=== PATIENT | male | born 1955 | race Caucasian/White ===

== ENCOUNTER 2017-03-28 17:57 | Inpatient (IN) | payer OTHER ==
[~2017-03-28] VITALS: Ht 182.9 cm; Wt 125.1 kg
[~2017-03-28 17:57] MED LIST: DEPAKOTE250 MG PO; DEPAKOTE500 MG PO; DIVALPROEX SOD500 MG PO; GEODON80 MG PO; LO-DOSE ASPIRIN81 M2 PO; NITROSTAT0.4 MG SL
[2017-03-28 18:57] LABS: HEMOGLOBIN 14.8 G/DL (12.5-16.6); MCH 32.2 PG (29.0-34.0); MCHC 35.2 G/DL (30.0-36.0); MCV 91.3 FL (86-99); PLATELET COUNT 183 K/uL (156-360); RBC DIS.WIDTH-CV 13.1 % (11.8-14.6); RBC DIS.WIDTH-SD 43.3 % (39-53); WHITE BLOOD COUNT 21.1 K/uL (4.1-10.2)
[2017-03-28 19:09] LABS: CHLORIDE 104 mEq/L (99-109); POTASSIUM 4.7 mEq/L (3.7-5.4); SODIUM 137 mEq/L (136-147)
[2017-03-28 19:10] LABS: GLUCOSE 128 mg/dL (70-99)
[2017-03-28 19:14] LABS: CREATININE 1.4 mg/dL (0.6-1.3); GFR ESTIMATE (CALCULATED) 55 mL/min/ (58.99-99999)
[2017-03-28 19:15] LABS: UREA NITROGEN (BUN) 16 mg/dL (9-23)
[2017-03-28 19:19] LABS: TROP-I INTERPRETATION NEGATIVE; TROPONIN-I 0.05 ng/mL (0.0-0.30)
[2017-03-28] MEDS ORDERED: ZITHROMAX Z-PA250 MG PO (22:00)
[2017-03-28 22:06] LABS: TROP-I INTERPRETATION NEGATIVE; TROPONIN-I 0.27 ng/mL (0.0-0.30)
[2017-03-28] MEDS ORDERED: OXYBUTYNIN CHLO10 MG PO (22:49)
[2017-03-28] MEDS ORDERED: ZIPRASIDONE HCL80 MG PO (22:51)
[2017-03-28] MEDS ORDERED: DIVALPROEX SOD500 MG PO (22:52)
[2017-03-28] MEDS ORDERED: STOOL SOFTENER1 EAC2 PO (22:56)
[2017-03-29 01:30] LABS: TROP-I INTERPRETATION INDETERMINATE; TROPONIN-I 0.39 ng/mL (0.0-0.30)
[2017-03-29 07:37] LABS: HEMATOCRIT 39.9 % (38.0-50.0); HEMOGLOBIN 13.6 G/DL (12.5-16.6); MCH 31.6 PG (29.0-34.0); MCHC 34.1 G/DL (30.0-36.0); MCV 92.8 FL (86-99); PLATELET COUNT 185 K/uL (156-360); RBC DIS.WIDTH-CV 13.5 % (11.8-14.6); RBC DIS.WIDTH-SD 45.4 % (39-53); WHITE BLOOD COUNT 13.1 K/uL (4.1-10.2)
[2017-03-29 07:43] LABS: INTER. NORMALIZED RATIO 1.2
[2017-03-29 07:46] LABS: PTT 36.2 SEC (25-37)
[2017-03-29 08:09] LABS: TROP-I INTERPRETATION INDETERMINATE; TROPONIN-I 0.32 ng/mL (0.0-0.30)
[2017-03-29 08:15] LABS: ALBUMIN 3.7 G/DL (3.2-4.8); ALKALINE PHOSPHATASE 46 IU/L (3-129); ALT (GPT) 23 IU/L (3-49); AST (GOT) 32 IU/L (2-34); CHLORIDE 105 MEQ/L (99-109); CREATININE 1.3 MG/DL (0.6-1.3); GFR ESTIMATE (CALCULATED) > 59 mL/min/ (58.99-99999); HDL CHOLESTEROL 38 MG/DL (Desirable>=40); LDL CHOLESTEROL 44 mg/dL (Desirable<100); MAGNESIUM 2.4 mg/dl (1.3-2.7); NON-HDL CHOLESTEROL 65 mg/dL (Desirable<160); POTASSIUM 4.4 MEQ/L (3.7-5.4); SODIUM 139 MEQ/L (136-147); TOTAL BILIRUBIN 0.5 MG/DL (0.0-1.0); TOTAL CHOLESTEROL 103 mg/dL (Desirable<200); TOTAL PROTEIN 6.8 G/DL (6.4-8.3); TRIGLYCERIDES 104 MG/DL (Normal: <150); UREA NITROGEN (BUN) 17 mg/dL (9-23)
[2017-03-29 08:20] LABS: GLUCOSE 95 mg/dL (70-99)
[2017-03-29 10:52] LABS: HEMOGLOBIN A1c (GLYCOHEMOGLOB) 5.8 % (Below 5.7)
[2017-03-29 13:05] LABS: TROP-I INTERPRETATION NEGATIVE; TROPONIN-I 0.21 ng/mL (0.0-0.30)
[2017-03-29 15:30] VITALS: BP 115/66
[2017-03-29 19:45] VITALS: BP 104/71
[2017-03-30 00:30] VITALS: BP 110/70
[2017-03-30 03:53] VITALS: BP 120/74
[2017-03-30 05:56] LABS: HEMATOCRIT 37.5 % (38.0-50.0); HEMOGLOBIN 12.9 G/DL (12.5-16.6); MCH 32.1 PG (29.0-34.0); MCHC 34.4 G/DL (30.0-36.0); MCV 93.3 FL (86-99); PLATELET COUNT 171 K/uL (156-360); RBC DIS.WIDTH-CV 13.4 % (11.8-14.6); RBC DIS.WIDTH-SD 45.5 % (39-53); RED BLOOD COUNT 4.02 M/uL (4.00-5.50); WHITE BLOOD COUNT 10.5 K/uL (4.1-10.2)
[2017-03-30 06:43] LABS: CHLORIDE 105 MEQ/L (99-109); CREATININE 1.2 MG/DL (0.6-1.3); GFR ESTIMATE (CALCULATED) > 59 mL/min/ (58.99-99999); GLUCOSE 87 mg/dL (70-99); POTASSIUM 4.4 MEQ/L (3.7-5.4); SODIUM 139 MEQ/L (136-147); UREA NITROGEN (BUN) 22 mg/dL (9-23)
[2017-03-30 08:34] VITALS: BP 115/58
[2017-03-30] MEDS ORDERED: ATORVASTATIN CA80 MG PO (09:38)
[2017-03-30] MEDS ORDERED: CLEOCIN150 MG PO (09:38)
[2017-03-30] MEDS ORDERED: LISINOPRIL2.5 MG PO (09:38)
[2017-03-30] MEDS ORDERED: CLOPIDOGREL75 MG PO (09:38)
[2017-03-30 11:44] VITALS: BP 119/61
== END 2017-03-30 14:59 | disposition home or self-care (01) | DRG 281 ==
LOC: EME 17:57 → 4EAST 03-29 00:38 → EDOF 03-29 00:38 → ENRESERV 03-29 00:43 → EDOF 03-29 09:14 → ENRESERV 03-29 13:35 → 4EAST 03-29 14:54 → ENPENDDIS 03-30 → 4EAST 03-30 14:59
PROVIDERS: Emergency Medicine Emergency Medical Services; Hospitalist; Physician Assistant Medical
DX: I21.4 Non-ST elevation (NSTEMI) myocardial infarction (principal); N17.9 Acute kidney failure, unspecified; L03.115 Cellulitis of right lower limb; I12.9 Hypertensive chronic kidney disease with stage 1 through stage 4 chronic kidney disease, or unspecified chronic kidney disease; E11.22 Type 2 diabetes mellitus with diabetic chronic kidney disease; N18.3 Chronic kidney disease, stage 3 (moderate); E78.5 Hyperlipidemia, unspecified; G40.909 Epilepsy, unspecified, not intractable, without status epilepticus; F20.0 Paranoid schizophrenia; F60.9 Personality disorder, unspecified; R62.50 Unspecified lack of expected normal physiological development in childhood; E66.01 Morbid (severe) obesity due to excess calories; Z68.38 Body mass index [BMI] 38.0-38.9, adult; Z82.49 Family history of ischemic heart disease and other diseases of the circulatory system
CPT/HCPCS: 71046; 73630; 78582; 80048; 80053; 80061; 82948; 83036; 83735; 83880; 84484; 85027; 85610; 85730; 93005; 93971; 99281; 99285; A9540; A9567; J1650

== ENCOUNTER 2017-04-28 10:48 | Day surgery (SDC) | payer OTHER ==
[~2017-04-28] VITALS: Ht 190.5 cm; Wt 123.8 kg
[~2017-04-28 10:48] MED LIST changes: +ATORVASTATIN CA80 MG PO; +CLEOCIN150 MG PO; +CLOPIDOGREL75 MG PO; +LISINOPRIL2.5 MG PO; +OXYBUTYNIN CHLO10 MG PO; +STOOL SOFTENER1 EAC2 PO; +ZIPRASIDONE HCL80 MG PO; +ZITHROMAX Z-PA250 MG PO
== END 2017-04-28 16:51 | disposition home or self-care (01) ==
LOC: CATH 10:48
DX: R07.9 Chest pain, unspecified (principal); E11.9 Type 2 diabetes mellitus without complications; I10 Essential (primary) hypertension; E66.9 Obesity, unspecified; Z68.34 Body mass index [BMI] 34.0-34.9, adult; R20.9 Unspecified disturbances of skin sensation; Z79.82 Long term (current) use of aspirin; Z79.02 Long term (current) use of antithrombotics/antiplatelets
CPT/HCPCS: C1769; C1887; J1644; J2250; J3010; J7040

== ENCOUNTER 2017-05-02 11:58 | Emergency (ER) | payer OTHER ==
[~2017-05-02] VITALS: Ht 190.5 cm; Wt 124.4 kg
[2017-05-02 14:07] LABS: HEMATOCRIT 39.1 % (38.0-50.0); HEMOGLOBIN 13.5 G/DL (12.5-16.6); MCH 31.8 PG (29.0-34.0); MCHC 34.5 G/DL (30.0-36.0); PLATELET COUNT 137 K/uL (156-360); RBC DIS.WIDTH-CV 13.5 % (11.8-14.6); RBC DIS.WIDTH-SD 45.5 % (39-53); RED BLOOD COUNT 4.25 M/uL (4.00-5.50); WHITE BLOOD COUNT 13.1 K/uL (4.1-10.2)
[2017-05-02 14:15] LABS: PTT 25.6 SEC (25-37)
[2017-05-02 14:22] LABS: ALBUMIN 3.7 g/dL (3.2-4.8); CHLORIDE 105 mEq/L (99-109); POTASSIUM 4.3 mEq/L (3.7-5.4); SODIUM 136 mEq/L (136-147)
[2017-05-02 14:23] LABS: MAGNESIUM 2.7 mg/dL (1.3-2.7)
[2017-05-02 14:25] LABS: GLUCOSE 83 mg/dL (70-99); TOTAL PROTEIN 7.2 g/dL (6.4-8.3)
[2017-05-02 14:26] LABS: TOTAL BILIRUBIN 0.4 mg/dL (0.0-1.0)
[2017-05-02 14:27] LABS: SERUM ETHYL ALCOHOL < 10 mg/dL
[2017-05-02 14:28] LABS: ALKALINE PHOSPHATASE 55 IU/L (3-129); CREATININE 1.4 mg/dL (0.6-1.3); GFR ESTIMATE (CALCULATED) 55 mL/min/ (58.99-99999)
[2017-05-02 14:29] LABS: UREA NITROGEN (BUN) 18 mg/dL (9-23)
[2017-05-02 14:30] LABS: AST (GOT) 23 IU/L (2-34)
[2017-05-02 14:31] LABS: ALT (GPT) 17 IU/L (3-49)
[2017-05-02 14:32] LABS: CREATINE KINASE 121 IU/L (1-294); LIPASE 13 U/L (1.0-51.0)
[2017-05-02 14:33] LABS: TROP-I INTERPRETATION NEGATIVE; TROPONIN-I < 0.01 ng/mL (0.0-0.30)
[2017-05-02 14:47] LABS: INTER. NORMALIZED RATIO 1.1
[2017-05-02 15:01] LABS: APPEARANCE SL.HAZY ((CLEAR)); BILIRUBIN NEGATIVE; BLOOD SMALL; COLOR YELLOW ((YELLOW)); GLUCOSE (STRIP) NEGATIVE; KETONES NEGATIVE; LEUKOCYTES NEGATIVE; NITRITE NEGATIVE; PROTEIN (STRIP) NEGATIVE; SPECIFIC GRAVITY 1.014 (1.000-1.030); UROBILINOGEN 0.2 MG/DL (0.2-1.0)
[2017-05-02 15:05] LABS: BACTERIA RARE /HPF; EPITHELIAL CELLS RARE /HPF; MUCUS TRACE /LPF; RED BLOOD CELLS 0-5 /HPF (0-5); WHITE BLOOD CELLS 0-5 /HPF (0-5)
[2017-05-02 15:19] LABS: AMPHETAMINE NEGATIVE (500 ng/mL); BARBITURATES NEGATIVE (200 ng/mL); BENZODIAZEPINES NEGATIVE (150 ng/mL); BUPRENORPHINE NEGATIVE (10 ng/mL); COCAINE NEGATIVE (150 ng/mL); METHADONE NEGATIVE (200 ng/mL); METHAMPHETAMINE NEGATIVE (500 ng/mL); OPIATES (MORPHINE) NEGATIVE (100 ng/mL); OXYCODONE NEGATIVE (100 ng/mL); PHENCYCLIDINE NEGATIVE (25 ng/mL); PROPOXYPHENE NEGATIVE (300 ng/mL); THC CANNABINOIDS NEGATIVE (50 ng/mL); TRICYCLIC ANTIDEPRESSANTS NEGATIVE (300 ng/mL)
[2017-05-02 17:30] LABS: TROP-I INTERPRETATION NEGATIVE; TROPONIN-I 0.01 ng/mL (0.0-0.30)
[2017-05-02 18:55] VITALS: BP 137/94
[2017-05-02 20:34] LABS: THYROTROPIN (TSH) 1.9 MIU/L (0.4-5.5)
== END 2017-05-02 19:00 | disposition home or self-care (01) ==
LOC: EME 11:58
PROVIDERS: Emergency Medicine
DX: R00.0 Tachycardia, unspecified (principal); F20.9 Schizophrenia, unspecified; E11.9 Type 2 diabetes mellitus without complications; R56.9 Unspecified convulsions; Z79.82 Long term (current) use of aspirin; Z88.1 Allergy status to other antibiotic agents
CPT/HCPCS: 71045; 80053; 81003; 82550; 83690; 83735; 84443; 84484; 85027; 85610; 85730; 86850; 86900; 86901; 93005; 99281; 99284; G0480